=== PATIENT | male | born 1950 | race Caucasian/White ===

== ENCOUNTER → 2019-03-17 | Outpatient (CLI) | payer MEDICARE, BC ==
--- NOTE | 2019-03-17 10:05 | XR ---
EXAMINATION TYPE: XR KUB DATE OF EXAM: 03/17/2019 COMPARISON: NONE HISTORY: Postoperative renal stent TECHNIQUE: One view abdominal series FINDINGS: The osseous structures are intact. The bowel gas pattern is nonspecific. Left-sided renal stent note d. No suspicious calcifications overlying the kidneys. Vascular calcifications in the right hemipelvi s noted. Arthropathy of the hips.. IMPRESSION: 1. Nonspecific abdomen. No definite suspicious calcifications.
== END | disposition home or self-care (01) ==
LOC: RADXRMAIN 09:33
PROVIDERS: ATTEND Urology
DX: N20.0 Calculus of kidney (principal); Z98.890 Other specified postprocedural states
CPT/HCPCS: 74018

== ENCOUNTER → 2020-05-26 | Outpatient (CLI) | payer MEDICARE, BC ==
[2020-05-26 11:01] LABS: Basophils % (A) 0 %; Eosinophils # (A) 0.3 k/uL (0-0.7); Eosinophils % (A) 5 %; HCT 42.6 % (39.0-53.0); HGB 13.4 gm/dL (13.0-17.5); Lymphocytes # (A) 1.2 k/uL (1.0-4.8); Lymphocytes % (A) 22 %; MCH 28.6 pg (25.0-35.0); MCHC 31.5 g/dL (31.0-37.0); MCV 90.7 fL (80.0-100.0); Monocytes # (A) 0.3 k/uL (0-1.0); Monocytes % (A) 6 %; Neutrophils # (A) 3.5 k/uL (1.3-7.7); Neutrophils % (A) 65 %; Platelet Count 297 k/uL (150-450); RBC 4.69 m/uL (4.30-5.90); RDW 14.1 % (11.5-15.5); WBC 5.4 k/uL (3.8-10.6)
[2020-05-26 11:07] LABS: Calcium 8.9 mg/dL (8.4-10.2); Potassium 4.2 mmol/L (3.5-5.1)
== END | disposition home or self-care (01) ==
LOC: LABPAT 10:18
PROVIDERS: ATTEND Urology
DX: Z01.818 Encounter for other preprocedural examination (principal); N20.1 Calculus of ureter; R31.29 Other microscopic hematuria; R53.83 Other fatigue
CPT/HCPCS: 36415; 80048; 85025; 87086; 93005

== ENCOUNTER 2020-06-02 06:03 | Day surgery (SDC) | payer MEDICARE, BC ==
[2020-05-27 10:54] VITALS: BMI 29.0
--- NOTE | 2020-06-01 13:01 | P.GSHP ---
History of Present Illness H&P Date: 06/01/20 69 yo male with a history of stones he recently was at [facility] with bilateral ureteral stones A 5 mm proximal ureteral stone on the right which was treated with a stent He had both proximal and distal ureteral stones on the left Due to edema a stent couldnot be placed He was asx so therefore a perc tube was not placed. He had a uti which has been treated, He now comes for left ureteroscopy withlaser lithotripsy/ stent on the left and probable stent and stone removal on the right - Constitutional Constitutional: Denies chills, Denies fever - EENT Eyes: denies blurred vision, denies pain Ears, nose, mouth and throat: Denies headache, Denies sore throat - Cardiovascular Cardiovascular: Denies chest pain, Denies shortness of breath - Respiratory Respiratory: Denies cough, Denies 7 - Gastrointestinal Gastrointestinal: Denies abdominal pain, Denies diarrhea, Denies nausea, Denies vomiting - Genitourinary (Female) Genitourinary: Denies dysuria, Denies hematuria - Genitourinary (Male) Genitourinary: Denies dysuria, Denies hematuria - Musculoskeletal Musculoskeletal: Denies myalgias - Integumentary Integumentary: Denies pruritus, Denies rash - Neurological Neurological: Denies numbness, Denies weakness - Psychiatric Psychiatric: Denies anxiety, Denies depression - Endocrine Endocrine: Denies fatigue, Denies weight change Past Medical History Additional Past Medical History / Comment(s): hx kidney stones History of Any Multi-Drug Resistant Organisms: None Reported Past Surgical History: Hernia Repair, Tonsillectomy Additional Past Surgical History / Comment(s): lithotripsy and stent to rt side 05/18/20, [place] Janina, sx to remove kidney stone, sinus sx, cataract sx venkata Past Anesthesia/Blood Transfusion Reactions: Previous Problems w/ Anesthesia Additional Past Anesthesia/Blood Transfusion Reaction / Comment(s): "I wake up slow" Smoking Status: Never smoker - Past Family History Mother Family Medical History: Cancer Additional Family Medical History / Comment(s): colon ca Medications and Allergies Home Medications Medication Instructions Recorded Confirmed Type HYDROcodone/APAP 5-325MG [[place] 1 tab PO Q4HR PRN 05/27/20 05/27/20 History 5-325] Tamsulosin [Flomax] 0.4 mg PO DAILY 05/27/20 05/27/20 History Tolterodine ER [Detrol LA] 4 mg PO DAILY 05/27/20 05/27/20 History Allergies Allergy/AdvReac Type Severity Reaction Status Date / Time No Known Allergies Allergy Verified 05/27/20 10:47 Surgical - Exam - General well developed, well nourished, no distress - Eyes PERRL - ENT no hearing loss - Neck no masses, trachea midline - Respiratory normal expansion, normal respiratory effort - Cardiovascular Rhythm: regular - Abdomen Abdomen: soft, non tender - Genitourinary normal penis with no external lesions, testicles present - Integumentary no rash, no growths - Neurologic normal coordination, normal sensation - Musculoskeletal normal gait, normal posture - Psychiatric oriented to time, oriented to person, oriented to place, speech is normal, memory intact Results - Imaging CT scan - abdomen: report reviewed, image reviewed CT scan - pelvis: report reviewed, image reviewed Assessment and Plan Assessment: Impression: Left ureteral calculi, RIght ureteral stone with stent. plan: Left ureteroscopy with laser lithotripsy and stent. RIght ureteroscopy with laser lithotripsy stone and stent removal
[~2020-06-02 06:03] MED LIST: DEXAMETHASONE SOD PHOSPHATE 4 MG/ML 1 ML VIAL IV ONE; HYDROmorphone 0.5 MG/0.5 ML SYRINGE IVP PRN; LACTATED RINGERS 1,000 ML IV SCH; ONDANSETRON 4 MG/2 ML VIAL IVP ONE
[2020-06-02] MEDS ORDERED: LIDOCAINE 1% (10MG/ML) FOR IV START INTRADERMA ONE (07:01)
[2020-06-02] MEDS ORDERED: MIDAZOLAM 2 MG/2 ML VIAL ONE (07:24)
[2020-06-02] MEDS ORDERED: LIDOCAINE 1% INJ 10MG/ML (20 ML MDV) ONE (07:24)
[2020-06-02] MEDS ORDERED: fentaNYL (PF) 50 MCG/ML 2 ML AMP ONE (07:24)
[2020-06-02] MEDS ORDERED: PROPOFOL 10 MG/ML 20 ML VIAL IV ONE (07:24)
--- NOTE | 2020-06-02 07:25 | XR ---
EXAMINATION TYPE: XR KUB DATE OF EXAM: 06/02/2020 Comparison: 03/17/2019 Clinical History: 69-year-old male with kidney stone, preop exam. Findings: Right ureteral stent is present. The proximal loop is partially uncoiled. Phlebolith within the right side of the pelvis. A couple left-sided renal calculi measure 1.0 and 0.8 cm. An additional calcific ation left paramedian midline mid to lower abdomen measured 1 cm. Nonobstructive bowel gas pattern. Moderate stool in the right side of the abdomen. Impression: 1. Right ureteral stent. The proximal loop is partially uncoiled. 2. A couple left-sided renal calculi measuring 10 mm and 8 mm. 3. Additional calculus left paramedian midline mid to lower abdomen measuring 1 cm, possibly in the u reter.
[2020-06-02] MEDS ORDERED: LACTATED RINGERS 1,000 ML IV ONE (08:28)
[2020-06-02 08:42] VITALS: RESP 18; TEMP 97.3
--- NOTE | 2020-06-02 08:50 | P.OP ---
Date of Procedure: 06/02/20 Preoperative Diagnosis: Bilateral ureteral calculi, right double-J catheter Postoperative Diagnosis: Same Procedure(s) Performed: Cystoscopy, removal double-J catheter right, right ureteroscopy laser lithotripsy and stone basketing, left ureteroscopy laser lithotripsy, placement of 6 x 26 double-J catheter left Anesthesia: FARAZ Surgeon: Fredy Romero Estimated Blood Loss (ml): 10 Pathology: other (Stone) Condition: stable Disposition: PACU Indications for Procedure: The patient is 69. He has a history of stones. He was a [facility] when he had bilateral ureteral stones with urinary tract infection with sepsis. Dr. BUTTERFIELD placed a stent on the right and treated with antibiotics. He had no symptoms from the left stone. He comes today for bilateral ureteroscopy. Description of Procedure: The patient is brought to the operating suite. He is given a general endotracheal anesthesia. He's placed lithotomy position with sterile prep and drape. Fluoroscopy identifies a stent on the right with the proximal ureteral stone and a large proximal ureteral stone on the left With the 21-Slovak cystoscope with Foroblique lens the urethra was intubated. The anterior urethra is normal. The prostatic urethra does show some trilobar obstruction. The bladder is entered. The stent on the right is identified and grasped and pulled to the urethral meatus. An 035 wire is passed up through the stent up into the renal pelvis on the right side. The right ureteroscopy with semirigid scope was performed. The proximal ureter a stone is identified and broken up into tiny fragments and flushed out of the ureter with the 275 laser probe I elect to leave the stent out. I basket any larger fragments. I do a pullout ureteroscopy and there is no remaining stones I approached the left ureter. I passed the semirigid scope up to the left proximal ureteral stone. I attempted pass a wire by the stone but I am unable to do so. I gently break up the stone with the 275 laser probe into sand-like fragments up. Eventually the lumen is identified. I'm able to easily pass a scope through the lumen up into the renal pelvis. I basket the larger stones up. I elect to leave a stent due to the edema from the stone impaction. An 035 wires passed through the ureteroscope up into the renal pelvis on the left side. The wires backloaded onto the cystoscope. I advanced the cystoscope into the bladder. Over the wires and passed a 6 x 26 double-J catheter that coils in the left renal pelvis and the bladder and the bladder is drained. Stone fragments are collected and sent to pathology. The patient is awakened and returned recovery in good condition. He'll be discharged home upon recovery and follow in the office
--- NOTE | 2020-06-02 09:47 | FL ---
EXAMINATION TYPE: FL guidance operating room DATE OF EXAM: 06/02/2020 FLUOROSCOPY Fluoroscopy time of 8 seconds was used during cystoscopy with lithotripsy. 1 image/s document/s the procedure.
[2020-06-02] MEDS ORDERED: HYDROcodone/APAP 5-325MG 1 EACH TAB ONE (09:53)
[2020-06-02] MEDS ORDERED: HYDROcodone/APAP 5-325MG 1 EACH TAB PO ONE (09:54)
[2020-06-02 10:16] VITALS: BP 164/97; PULSE 89
== END 2020-06-02 11:11 | disposition home or self-care (01) ==
LOC: OR 06:03
PROVIDERS: ATTEND Urology
DX: N20.1 Calculus of ureter (principal); K21.9 Gastro-esophageal reflux disease without esophagitis; Z96.0 Presence of urogenital implants; Z87.442 Personal history of urinary calculi; Z87.440 Personal history of urinary (tract) infections; Z87.19 Personal history of other diseases of the digestive system; Z98.890 Other specified postprocedural states; Z90.89 Acquired absence of other organs; Z98.41 Cataract extraction status, right eye; Z98.42 Cataract extraction status, left eye; Z91.89 Other specified personal risk factors, not elsewhere classified; Z80.0 Family history of malignant neoplasm of digestive organs; Z79.899 Other long term (current) drug therapy; Z86.19 Personal history of other infectious and parasitic diseases
CPT/HCPCS: 82365; 74018; 52356; 52353; C2625; C1769; J2250; J1100; J0690; J2405; J2001; J3010; J2704

== ENCOUNTER 2020-11-08 06:08 | Day surgery (SDC) | payer MEDICARE, BC ==
[2020-11-04 12:13] VITALS: BMI 28.1
--- NOTE | 2020-11-08 06:35 | XR ---
EXAMINATION TYPE: XR KUB DATE OF EXAM: 11/08/2020 COMPARISON: 06/02/2020 HISTORY: Kidney stones TECHNIQUE: Single view FINDINGS: There are multiple calculi over the left kidney that measure up to 1 cm. The bowel gas alysa ericka is nonacute. There is no evidence of a mass. There is no sign of free air. There are phleboliths in the pelvis. IMPRESSION: Left renal calculi not significantly different than old exam. There is irregular 10 mm ca lcification over the proximal left ureter on the old exam that is not seen on today's exam.
[2020-11-08 06:42] VITALS: RESP 16; TEMP 98.1
[2020-11-08] MEDS ORDERED: PROPOFOL 10 MG/ML 20 ML VIAL IV ONE (07:35)
[2020-11-08] MEDS ORDERED: fentaNYL (PF) 50 MCG/ML 2 ML AMP ONE (07:35)
[2020-11-08] MEDS ORDERED: PHENYLEPHRINE-0.9% NACL SYG 1,000 MCG/10 ML SYRINGE ONE (07:35)
[2020-11-08] MEDS ORDERED: MIDAZOLAM 2 MG/2 ML VIAL ONE (07:35)
[2020-11-08] MEDS ORDERED: LIDOCAINE 1% INJ 10MG/ML (20 ML MDV) ONE (07:35)
--- NOTE | 2020-11-08 07:55 | P.GSHP ---
History of Present Illness H&P Date: 11/08/20 70-year-old gentleman with a history kidney stones who has two left renal stones the largest 8 mm. These are symptomatic. He comes for shockwave lithotripsy left. - Constitutional Constitutional: Denies chills, Denies fever - EENT Eyes: denies blurred vision, denies pain Ears, nose, mouth and throat: Denies headache, Denies sore throat - Cardiovascular Cardiovascular: Denies chest pain, Denies shortness of breath - Respiratory Respiratory: Denies cough, Denies 7 - Gastrointestinal Gastrointestinal: Denies abdominal pain, Denies diarrhea, Denies nausea, Denies vomiting - Genitourinary (Female) Genitourinary: Denies dysuria, Denies hematuria - Genitourinary (Male) Genitourinary: Denies dysuria, Denies hematuria - Musculoskeletal Musculoskeletal: Denies myalgias - Integumentary Integumentary: Denies pruritus, Denies rash - Neurological Neurological: Denies numbness, Denies weakness - Psychiatric Psychiatric: Denies anxiety, Denies depression - Endocrine Endocrine: Denies fatigue, Denies weight change Past Medical History Additional Past Medical History / Comment(s): kidney stones, History of Any Multi-Drug Resistant Organisms: None Reported Past Surgical History: Hernia Repair, Tonsillectomy Additional Past Surgical History / Comment(s): , sinus sx, cataract sx venkata, KIDNEY STONE SURGERY , RIGHT INGUINAL HERNIA SURGERY, LEFT INGUINAL HERNIA SURGERY Past Anesthesia/Blood Transfusion Reactions: Previous Problems w/ Anesthesia Additional Past Anesthesia/Blood Transfusion Reaction / Comment(s): "I wake up slow" Smoking Status: Never smoker - Past Family History Mother Family Medical History: Cancer Additional Family Medical History / Comment(s): COLON CANCER Medications and Allergies Home Medications Medication Instructions Recorded Confirmed Type No Known Home Medications 11/04/20 11/08/20 History Allergies Allergy/AdvReac Type Severity Reaction Status Date / Time No Known Allergies Allergy Verified 11/08/20 06:34 Surgical - Exam Vital Signs Temp Pulse Resp BP Pulse Ox 98.1 F 69 16 146/79 97 11/08/20 06:37 11/08/20 06:37 11/08/20 06:37 11/08/20 06:37 11/08/20 06:37 - General well developed, well nourished, no distress - Eyes PERRL - ENT no hearing loss - Neck trachea midline - Respiratory normal expansion, normal respiratory effort - Cardiovascular Rhythm: regular - Abdomen Abdomen: soft, non tender - Genitourinary normal penis with no external lesions, testicles present - Integumentary no rash, no growths - Neurologic normal coordination, normal sensation - Musculoskeletal normal gait, normal posture - Psychiatric oriented to time, oriented to person, oriented to place, speech is normal, memory intact Results - Imaging Abdominal x-ray: report reviewed, image reviewed Assessment and Plan Assessment: Impression: Left renal stones, symptomatic Recommendations: Shockwave lithotripsy left
--- NOTE | 2020-11-08 08:13 | P.OP ---
Date of Procedure: 11/08/20 Preoperative Diagnosis: Left renal stone Postoperative Diagnosis: Same Procedure(s) Performed: Extracorporeal shockwave lithotripsy left 2000 shocks of energy level IV Anesthesia: MAC Surgeon: Fredy Romero Estimated Blood Loss (ml): 0 Pathology: none sent Condition: stable Disposition: PACU Indications for Procedure: The patient is 70 with symptomatic left renal stones will come for shockwave lithotripsy left Description of Procedure: The patient is brought to the operating suite. He's placed on the lithotripsy table in the supine position. The stone was seen in 2 views of fluoroscopy. 1250 shocks at energy level IV administered to fracture the larger of the 2 stones. We then moved to the left lower pole stone 50 shocks at energy level for administered to fracture. I then give 250 shocks more to the kidney stone on the left and its fragments. Then of procedure the stone was fractured nicely. The patient's awake and returned recovery good condition. He will be discharged home upon recovery and found the office in one week.
[2020-11-08 08:37] VITALS: BP 134/87; PULSE 70
== END 2020-11-08 09:09 | disposition home or self-care (01) ==
LOC: ORWHC2ENDO 06:08
PROVIDERS: ATTEND Urology
DX: N20.0 Calculus of kidney (principal); Z87.442 Personal history of urinary calculi; Z98.42 Cataract extraction status, left eye; Z98.41 Cataract extraction status, right eye; Z98.890 Other specified postprocedural states; Z80.0 Family history of malignant neoplasm of digestive organs
CPT/HCPCS: 74018; 50590; J2250; J1100; J2405; J2001; J3010; J2370; J2704

== ENCOUNTER → 2020-11-16 | Outpatient (CLI) | payer MEDICARE, BC ==
--- NOTE | 2020-11-16 08:01 | XR ---
EXAMINATION TYPE: XR KUB DATE OF EXAM: 11/16/2020 COMPARISON: 11/08/2020 HISTORY: Kidney stones TECHNIQUE: Single view FINDINGS: There are multiple left renal calculi and a conglomeration measuring up to 3 cm craniocauda l. There are also probable right renal calculi measuring up to 12 mm. Further evaluation with CT or u ltrasound may be helpful. No definite ureteral calculi. Nonspecific, nonobstructive bowel gas pattern . No evidence of free air. Presumed calcified pelvic phleboliths are seen. IMPRESSION: 1. There are a group of right renal calculi measuring up to 3 cm pineal Ernst. Probable right renal c alculi measuring up to 12 mm. Further evaluation with CT or ultrasound may be helpful if clinically i ndicated.
== END | disposition home or self-care (01) ==
LOC: RADXRMAIN 07:35
PROVIDERS: ATTEND Urology
DX: N20.0 Calculus of kidney (principal)
CPT/HCPCS: 74018

== ENCOUNTER → 2020-12-17 | Outpatient (CLI) | payer MEDICARE, BC ==
--- NOTE | 2020-12-17 08:33 | XR ---
EXAMINATION TYPE: XR KUB DATE OF EXAM: 12/17/2020 HISTORY: Status post lithotripsy Comparison: 11/16/2020 Single KUB is submitted for interpretation. Findings: Right renal calculi: None Visualized. Limited by overlying bowel content. Right ureteral calculi: None Visualized. 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 Additional 5.4 mm calculus seen. Left ureteral calculi: None Visualized. Pelvic calcifications: None Visualized. Bowel gas pattern is unremarkable. No free air. No mass effects. IMPRESSION: 1. 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 Additional 5.4 mm calculus seen.
== END | disposition home or self-care (01) ==
LOC: RADXRMAIN 08:13
PROVIDERS: ATTEND Urology
DX: N20.0 Calculus of kidney (principal)
CPT/HCPCS: 74018

== ENCOUNTER → 2021-02-01 | Outpatient (CLI) | payer MEDICARE, BC ==
--- NOTE | 2021-02-01 13:12 | XR ---
EXAMINATION TYPE: XR KUB DATE OF EXAM: 02/01/2021 Comparison: 12/17/2020 Clinical History: 70-year-old male N20.0 calculus Findings: Multiple casting calcifications left kidney measuring up to 2.5 x 1.2 cm. Nonobstructive bowel gas pa ttern. Mild stool burden. Phlebolith in the right side of the pelvis. Impression: Casting calcifications in the left kidney measuring up to 2.5 x 1.2 cm.
== END | disposition home or self-care (01) ==
LOC: RADXRMAIN 08:13
PROVIDERS: ATTEND Urology
DX: N20.0 Calculus of kidney (principal); N28.89 Other specified disorders of kidney and ureter
CPT/HCPCS: 74018

== ENCOUNTER → 2021-08-02 | Outpatient (CLI) | payer MEDICARE, BC ==
--- NOTE | 2021-08-02 09:53 | XR ---
EXAMINATION TYPE: XR KUB DATE OF EXAM: 08/02/2021 Comparison: 02/01/2021 Clinical History: 71-year-old male check for kidney stone, N20.0 calculus Findings: Extensive hyperdense debris throughout the bowel, left more so than right. Suspect underlying left re nal calculi measuring up to 1.0 cm. Extensive hyperdense debris limits the evaluation. The calculus a ppears smaller compared to 02/01/2021. Left-sided pelvic phlebolith. Patient's hands project at the th oracoabdominal junction. Nonobstructive bowel gas pattern with mild stool were noted. Mild degenerative change of both hips. Impression: 1. Extensive hyperdense debris throughout the bowel limits the assessment. Correlate with patient's i ngestion. This could reflect Pepto-Bismol, antacids, multivitamins, iron pills, or other heavy metal ingestion. 2. A 1.0 cm left renal calculus is suspected, smaller when compared to 02/01/2021.
== END | disposition home or self-care (01) ==
LOC: RADXRMAIN 07:22
PROVIDERS: ATTEND Urology
DX: N20.0 Calculus of kidney (principal)
CPT/HCPCS: 74018

== ENCOUNTER → 2022-10-13 | Outpatient (CLI) | payer MEDICARE, BC ==
--- NOTE | 2022-10-16 11:59 | CA ---
Exercise Stress Test Report Name: Kiran Drake Exam Date: 10/13/2022 09:33 Exam Location: [facility] Stress Ht (in): 67 Wt (lb): 195 BSA: 2.00 Ordering Phys: Tess Ross MD Referring Phys: KIERRA,, Technologist: ELIZABETH,, Age: 72 Gender: M : 1950 Procedure CPT: Indications: R07.9 CHEST PAIN ICD-10 Codes: Patient History: Chest pain Medications: Meds past 24 hrs: Pretest Chest Pain: STRESS TEST Tay Protocol Exercise Duration (min:sec): 09:[address] Depressions (mm): Angina Score: Donis Score: Resting HR (bpm): 70 Peak HR (bpm): 135 Resting BP (mmHg): 155 / 96 Peak BP (mmHg): 174 / 93 MPHR: 150 Target HR: 128 % MPHR: 90 METS: 10.3 Total Dose: Peak Dose: Atropine: Double Product: 31513 BP Response: Stress Termination: TARGET HR REACHED/MAX EXERTION Stress Symptoms: NO SYMPTOMS Stress Summary: ECG ANALYSIS Resting ECG: Stress ECG: CONCLUSIONS Good exercise capacity and a Tay protocol 9 minutes Normal heart rate and blood pressure response No symptoms No ECG evidence of ischemia No arrhythmias Dr. Harjit Hansen MD (Electronically Signed) Final Date: 16 Oct 2022 11:58
--- NOTE | 2022-10-16 12:00 | CA ---
Transthoracic Echo Report Name: Kiran Drake Age: 72 Gender: M : 1950 Exam Date: 10/13/2022 09:13 Exam Location: [facility] Ht (in): 67 Wt (lb): 195 Ordering Physician: Tess Ross MD Attending/Referring Phys: Fine Arts Teacher Jessica Galvin RDCS Procedure CPT: Indications: R07.9 CHEST PAIN Cardiac Hx: Technical Quality: Fair Contrast 1: Total Dose (mL): Contrast 2: Total Dose (mL): MEASUREMENTS (Male / Female) Normal Values 2D ECHO LV Diastolic Diameter PLAX 4.3 cm 4.2 - 5.9 / 3.9 - 5.3 cm LV Systolic Diameter PLAX 2.4 cm IVS Diastolic Thickness 1.4 cm 0.6 - 1.0 / 0.6 - 0.9 cm LVPW Diastolic Thickness 1.4 cm 0.6 - 1.0 / 0.6 - 0.9 cm LV Relative Wall Thickness 0.7 RV Internal Dim ED PLAX 3.9 cm M-MODE Aortic Root Diameter MM 3.7 cm LA Systolic Diameter MM 4.1 cm LA Ao Ratio MM 1.1 AV Cusp Separation MM 0.0 cm DOPPLER AV Peak Velocity 114.0 cm/s AV Peak Gradient 5.2 mmHg AV Mean Velocity 83.3 cm/s AV Mean Gradient 2.9 mmHg AV Velocity Time Integral 23.1 cm LVOT Peak Velocity 81.7 cm/s LVOT Peak Gradient 2.7 mmHg Mitral E Point Velocity 97.5 cm/s Mitral A Point Velocity 114.7 cm/s Mitral E to A Ratio 0.9 MV Deceleration Time 210.3 ms MV E' Velocity 4.7 cm/s Mitral E to MV E' Ratio 20.7 TR Peak Velocity 250.7 cm/s TR Peak Gradient 25.1 mmHg Right Ventricular Systolic Press 35.3 mmHg FINDINGS Left Ventricle Moderately increased left ventricular wall thickness. Normal left ventricular systolic function with no obvious regional wall motion abnormalities. Left ventricular cavity size normal. Left ventricular ejection fraction is estimated at 55-60 %. Right Ventricle Mild right ventricular dilatation. Mild pulmonary hypertension. Right Atrium Normal right atrial size. Left Atrium Normal left atrial size. Mitral Valve Structurally normal mitral valve. Mild mitral regurgitation. Aortic Valve Trileaflet aortic valve. No aortic valve stenosis or regurgitation. Tricuspid Valve Structurally normal tricuspid valve. Mild tricuspid regurgitation. Pulmonic Valve Trace pulmonic regurgitation. Pericardium No pericardial effusion. Aorta Normal size aortic root and proximal ascending aorta. CONCLUSIONS LVH with preserved systolic function Previewed by: Dr. Harjit Hansen MD (Electronically Signed) Final Date: 16 Oct 2022 12:00
== END | disposition home or self-care (01) ==
LOC: RADNMMAIN 08:40
PROVIDERS: ATTEND Internal Medicine
DX: R07.9 Chest pain, unspecified (principal)
CPT/HCPCS: 93017; 93306

== ENCOUNTER 2023-01-02 11:26 | Day surgery (SDC) | payer MEDICARE, BC ==
[2023-01-01 09:26] VITALS: BMI 30.5
[2023-01-02 12:38] VITALS: RESP 16; TEMP 97
[2023-01-02] MEDS ORDERED: LACTATED RINGERS 1,000 ML IV ONE (12:41)
[2023-01-02] MEDS ORDERED: PROPOFOL 10 MG/ML 20 ML VIAL IV ONE (13:19)
--- NOTE | 2023-01-02 13:35 | P.PCN ---
Date of Procedure: 01/02/23 Procedure(s) Performed: BRIEF HISTORY: Patient is a 72-year-old pleasant white male scheduled for an elective colonoscopy as a part of screening for colon cancer. PROCEDURE PERFORMED: Colonoscopy with biopsy. PREOPERATIVE DIAGNOSIS: Screening for colon cancer. IV sedation per Anesthesia. PROCEDURE: After informed consent was obtained, the patient, was brought into the endoscopy unit. IV sedation was administered by Anesthesia under continuous monitoring. Digital rectal examination was normal. Initially the Olympus CF-160 flexible video colonoscope was then inserted in the rectum, gradually advanced into the cecum without any difficulty. Careful examination was performed as the scope was gradually being withdrawn. Ileocecal valve and the appendiceal orifice were visualized and appeared normal. Prep was excellent. Mucosa of the cecum, ascending colon, transverse colon, we normal. In the descending colon there was a 3 mm sessile polyp that was removed by cold biopsy rest of the descending colon, sigmoid colon, and rectum appeared normal. Retroflexion was performed in the rectum and no lesions were seen. The patient tolerated the procedure well. IMPRESSION: 3 mm descending colon polyp status post cold biopsy Rest of the colon appeared normal RECOMMENDATIONS: Findings of this examination were discussed with the patient as well as his family. He was advised to follow with the biopsy results and have a repeat screening colonoscopy in 10 years.
[2023-01-02 13:59] VITALS: BP 145/86; PULSE 83
== END 2023-01-02 14:18 | disposition home or self-care (01) ==
LOC: ORWHC2ENDO 11:26
PROVIDERS: ATTEND Internal Medicine Gastroenterology
DX: Z12.11 Encounter for screening for malignant neoplasm of colon (principal); D12.4 Benign neoplasm of descending colon
CPT/HCPCS: 88305; 45380; J2704

== ENCOUNTER → 2024-10-07 | Outpatient (CLI) | payer MEDICARE, BC ==
--- NOTE | 2024-10-07 10:47 | XR ---
EXAMINATION TYPE: XR KUB DATE OF EXAM: 10/07/2024 10:31 AM CLINICAL INDICATION: Male, 74 years old with history of CALCULUS OF KIDNEY, pain TECHNIQUE: 3 supine views of the abdomen. COMPARISON: Abdominal x-ray August 02, 2021. FINDINGS: No definite nephrolithiasis. Some limitation due to overlying colonic fecal debris. Overall nonobstructive bowel gas pattern. Osseous structures are intact. IMPRESSION: As above. [facility], , 10/07/2024 10:44 AM
== END | disposition home or self-care (01) ==
LOC: RADXRMAIN 10:12
PROVIDERS: ATTEND Urology
DX: N20.0 Calculus of kidney (principal)
CPT/HCPCS: 74018